=== PATIENT | female | born 1955 | race Caucasian/White ===

== ENCOUNTER 2016-11-09 17:32 | Observation (INO) ==
--- NOTE | 2016-11-09 19:14 | Emergency Department Note ---
Disposition Clinical Impression: Obesity, Wheezing, Cardiomegaly, Acute bronchitis, Bronchitis with bronchospasm Disposition: Admitted As Inpatient Referrals: Agus Jacobs DO [Primary Care Provider] - Forms: ED Satisfaction Letter General Adult HPI - General Chief complaint: ED Shortness of Breath/Dyspnea Stated complaint: Rule out blood clots Time Seen by Provider: 11/09/16 19:14 Source: patient Limitations: no limitations - History of Present Illness HPI Narrative: 61-year-old female reports emergency department complaining of a cough runny nose and wheezing. The patient was seen at urgent care and given 2 breathing treatments and Solu-Medrol. She reports that she was at occupational medicine being evaluated for a finger fracture as well. She states she was diagnosed with a left fifth digit fracture. The patient has had a cough and upper respiratory symptoms for the last several days. 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 The patient denies any chest pain, she has had a cough and shortness of breath, the patient has no history of coronary disease or CHF. No previous history of DVT PE or cancer. There is no history of leg swelling or pain or coughing up blood. She reports remotely when she had knee surgery bilaterally she had to be anticoagulated briefly. The patient denies any abdominal pain vomiting or diarrhea. She states she may have had a fever a few days ago. No difficulty swallowing. There is no history of syncope or any difficulty walking talking hearing seeing or speaking. No unilateral arm weakness or numbness, confusion falls or seizures. Persistent shortness of breath status post 2 breathing treatments and Solu-Medrol are reported. The patient was sent to the ED from occupational medicine for further evaluation regarding bronchitis and bronchospasm. Onset (ago): day(s) Pain Scale: 0 - Related Data Home Medications Medication Instructions Recorded Confirmed Atenolol [Tenormin] 50 mg PO DAILY 11/09/16 11/09/16 Azithromycin [Zithromax] 250 mg PO PER PKG DI 11/09/16 11/09/16 Duloxetine [Cymbalta] 30 mg PO BID 11/09/16 11/09/16 Fosinopril Sodium 40 mg PO DAILY 11/09/16 11/09/16 Levothyroxine [Synthroid] 175 mcg PO DAILY 11/09/16 11/09/16 Pioglitazone [Actos] 30 mg PO DAILY 11/09/16 11/09/16 PredniSONE [Deltasone] 20 mg PO TAPER 11/09/16 11/09/16 TraZODone 50 mg PO HS PRN 11/09/16 11/09/16 Triamterene/HCTZ 37.5/25mg 1 each PO DAILY 11/09/16 11/09/16 [Dyazide] Previous Rx's Medication Instructions Recorded Albuterol Sulfate [Albuterol 1 puff IH QID PRN #1 puff 11/09/16 Inhaler] Allergies Allergy/AdvReac Type Severity Reaction Status Date / Time baclofen AdvReac Hallucinati Verified 11/09/16 17:41 ng All systems ED: reviewed and negative except as stated. Past Medical History - Past Medical History Medical history: Reports: diabetes, hypertension, thyroid disease Psychiatric history: Reports: no psych history - Social History Smoking Status: Never smoker Smokeless Tobacco Status: No Alcohol use: Reports: none Physical Exam - General Limitations: no limitations General appearance: alert, in no apparent distress - Head Head exam: atraumatic, normocephalic, normal inspection - Eye Eye exam: Present: normal appearance, PERRL, EOMI. Absent: scleral icterus, conjunctival injection - ENT ENT exam: normal exam, normal oropharynx, mucous membranes moist, TM's normal bilaterally, normal external ear exam - Neck Neck exam: Present: normal inspection, full ROM, trachea midline - Chest Chest inspection: Present: symmetric chest wall rise. Absent: tenderness - Respiratory Respiratory exam: Present: wheezes, prolonged expiratory phase. Absent: normal lung sounds bilaterally, respiratory distress - Cardiovascular Cardiovascular exam: Present: regular rate, normal rhythm, normal heart sounds - Abdominal Exam Abdominal exam: Present: soft, Non-Tender. Absent: tenderness, distention, guarding, rebound, rigidity, pulsatile mass - Extremities Exam Extremities exam: Present: normal inspection, full ROM, normal capillary refill , other (All 4 extremities painless, supple, warm and well perfused without evidence of neurovascular or neuromuscular compromise.). Absent: tenderness, pedal edema, joint swelling, calf tenderness - Expanded Lower Extremity Exam Hip/Pelvis exam: Present: full ROM. Absent: tenderness Upper leg exam: Present: full ROM. Absent: tenderness Knee exam: Present: full ROM. Absent: tenderness Lower leg exam: Present: full ROM. Absent: tenderness, Homans' sign Ankle exam: Present: full ROM. Absent: tenderness Neurovascular/Tendon exam: Absent: motor deficit, sensory deficit, tendon deficit, extremity cold to touch, pallor - Back Exam Back exam: Present: normal inspection, full ROM. Absent: tenderness, CVA tenderness (R), CVA tenderness (L), vertebral tenderness - Neurological Exam Neurological exam: Present: alert, oriented X3, CN II-XII intact. Absent: motor sensory deficit - Psychiatric Psychiatric exam: Present: normal affect, normal mood - Skin Skin exam: Present: warm, dry, intact, normal color. Absent: rash, cyanosis, diaphoresis, erythema, pallor, mottled Course Vital Signs Temperature 97.8 F 11/09/16 17:39 Pulse Rate 78 11/09/16 17:39 Respiratory Rate 16 11/09/16 17:39 Blood Pressure 190/89 11/09/16 17:39 O2 Sat by Pulse Oximetry 97 11/09/16 17:39 Temperature 97.8 F 11/09/16 17:39 Pulse Rate 74 11/09/16 20:28 Respiratory Rate 18 11/09/16 20:52 Blood Pressure 149/85 11/09/16 20:52 O2 Sat by Pulse Oximetry 99 11/09/16 20:52 Oxygen Delivery Oxygen Delivery Room Air Medical Decision Making - MDM Narrative Medical decision making narrative: The patient's chest x-ray showed no acute disease however cardiomegaly as described. Laboratory testing is unrevealing apart from elevated lactate which is most likely secondary to albuterol. The patient has received 4 nebulizers today, and her best peak flow is 150 and she still has notable wheezing. The patient appears to have failed outpatient therapy. She has no known lung disease i.e. asthma or COPD. Based on her apparent persistent bronchospasm, I think the patient will require admission to the hospital for further evaluation and treatment. The patient is currently stable. I have discussed the case with the hospitalist on-call. He has accepted the patient and requested an ABG. The patient's flu testing is negative. She states she had an injection of Solu-Medrol at urgent care. - Lab Data Lab results reviewed: Yes I reviewed the patient's lab results. Result diagrams: 11/09/16 19:52 11/09/16 19:52 Lab Results 11/09/16 11/09/1617 Range/Units 19:52 19:52 19:52 WBC 7.4 (4.3-11.1) K/mcL RBC 4.45 (3.82-4.97) M/mcL Hgb 12.3 (11.5-15.4) g/dL Hct 40.1 (35.3-44.9) % MCV 90.1 (83.0-100.0) fL MCH 27.6 L (28.0-33.3) pg MCHC 30.7 L (31.6-35.5) g/dL RDW 14.9 H (11.5-14.5) % Plt Count 212 (140-400) K/mcL MPV 12.2 (9.4-12.4) fL Immature Gran % 1.2 (0-4) % Seg Neutrophils % 83.2 % Lymphocytes % 12.7 % Monocytes % 1.9 % Eosinophils % 0.5 % Basophils % 0.5 % Neutrophils # 6.2 (1.6-8.9) K/mcL Lymphocytes # 0.9 (0.6-4.6) K/mcL Monocytes # 0.1 (0.0-1.3) K/mcL Eosinophils # 0.0 (0.0-0.6) K/mcL Basophils # 0.0 (0.0-0.2) K/mcL PT 12.6 H (9.4-12.1) Seconds INR 1.2 APTT 30.0 (26.0-36.0) Seconds D-Dimer 455 (0-500) ng/mLFEU Sodium 137 (136-145) mEq/L Potassium 4.2 (3.5-4.5) mEq/L Chloride 100 (98-109) mEq/L Carbon Dioxide 24 (19-29) mEq/L BUN 16 (7-20) mg/dL Creatinine 1.06 (0.57-1.11) mg/dL Est GFR ( Amer) > 60 (> 60) Est GFR (Non-Af Amer) 53 L (> 60) BUN/Creatinine Ratio 15 (6-26) Glucose 255 H (70-99) mg/dL Calculated Osmolality 294 (280-300) Lactic Acid (0.5-2.2) mmol/L Calcium 9.3 (8.6-10.8) mg/dL Total Bilirubin 0.4 (0.2-1.2) mg/dL Direct Bilirubin 0.2 (0.0-0.5) mg/dL Indirect Bilirubin 0.2 (0.0-1.2) mg/dL AST 16 (5-34) Units/L ALT 15 (0-55) Units/L Alkaline Phosphatase 100 (38-126) Units/L Troponin I (0-0.03) ng/mL C-Reactive Protein (Less than 5) mg/L B-Natriuretic Peptide (0-100) pg/mL Serum Total Protein 7.4 (6.0-8.3) g/dL Albumin 3.6 (3.5-5.0) g/dL Globulin 3.8 H (2.4-3.5) g/dL Albumin/Globulin Ratio 0.9 L (1.1-2.2) 11/09/16 11/09/16 11/09/16 Range/Units 19:52 19:52 19:52 WBC (4.3-11.1) K/mcL RBC (3.82-4.97) M/mcL Hgb (11.5-15.4) g/dL Hct (35.3-44.9) % MCV (83.0-100.0) fL MCH (28.0-33.3) pg MCHC (31.6-35.5) g/dL RDW (11.5-14.5) % Plt Count (140-400) K/mcL MPV (9.4-12.4) fL Immature Gran % (0-4) % Seg Neutrophils % % Lymphocytes % % Monocytes % % Eosinophils % % Basophils % % Neutrophils # (1.6-8.9) K/mcL Lymphocytes # (0.6-4.6) K/mcL Monocytes # (0.0-1.3) K/mcL Eosinophils # (0.0-0.6) K/mcL Basophils # (0.0-0.2) K/mcL PT (9.4-12.1) Seconds INR APTT (26.0-36.0) Seconds D-Dimer (0-500) ng/mLFEU Sodium (136-145) mEq/L Potassium (3.5-4.5) mEq/L Chloride (98-109) mEq/L Carbon Dioxide (19-29) mEq/L BUN (7-20) mg/dL Creatinine (0.57-1.11) mg/dL Est GFR ( Amer) (> 60) Est GFR (Non-Af Amer) (> 60) BUN/Creatinine Ratio (6-26) Glucose (70-99) mg/dL Calculated Osmolality (280-300) Lactic Acid 3.1 H (0.5-2.2) mmol/L Calcium (8.6-10.8) mg/dL Total Bilirubin (0.2-1.2) mg/dL Direct Bilirubin (0.0-0.5) mg/dL Indirect Bilirubin (0.0-1.2) mg/dL AST (5-34) Units/L ALT (0-55) Units/L Alkaline Phosphatase (38-126) Units/L Troponin I 0.00 (0-0.03) ng/mL C-Reactive Protein (Less than 5) mg/L B-Natriuretic Peptide 147 H (0-100) pg/mL Serum Total Protein (6.0-8.3) g/dL Albumin (3.5-5.0) g/dL Globulin (2.4-3.5) g/dL Albumin/Globulin Ratio (1.1-2.2) 11/09/16 Range/Units 19:52 WBC (4.3-11.1) K/mcL RBC (3.82-4.97) M/mcL Hgb (11.5-15.4) g/dL Hct (35.3-44.9) % MCV (83.0-100.0) fL MCH (28.0-33.3) pg MCHC (31.6-35.5) g/dL RDW (11.5-14.5) % Plt Count (140-400) K/mcL MPV (9.4-12.4) fL Immature Gran % (0-4) % Seg Neutrophils % % Lymphocytes % % Monocytes % % Eosinophils % % Basophils % % Neutrophils # (1.6-8.9) K/mcL Lymphocytes # (0.6-4.6) K/mcL Monocytes # (0.0-1.3) K/mcL Eosinophils # (0.0-0.6) K/mcL Basophils # (0.0-0.2) K/mcL PT (9.4-12.1) Seconds INR APTT (26.0-36.0) Seconds D-Dimer (0-500) ng/mLFEU Sodium (136-145) mEq/L Potassium (3.5-4.5) mEq/L Chloride (98-109) mEq/L Carbon Dioxide (19-29) mEq/L BUN (7-20) mg/dL Creatinine (0.57-1.11) mg/dL Est GFR ( Amer) (> 60) Est GFR (Non-Af Amer) (> 60) BUN/Creatinine Ratio (6-26) Glucose (70-99) mg/dL Calculated Osmolality (280-300) Lactic Acid (0.5-2.2) mmol/L Calcium (8.6-10.8) mg/dL Total Bilirubin (0.2-1.2) mg/dL Direct Bilirubin (0.0-0.5) mg/dL Indirect Bilirubin (0.0-1.2) mg/dL AST (5-34) Units/L ALT (0-55) Units/L Alkaline Phosphatase (38-126) Units/L Troponin I (0-0.03) ng/mL C-Reactive Protein 28 H (Less than 5) mg/L B-Natriuretic Peptide (0-100) pg/mL Serum Total Protein (6.0-8.3) g/dL Albumin (3.5-5.0) g/dL Globulin (2.4-3.5) g/dL Albumin/Globulin Ratio (1.1-2.2) - Radiology Data Radiology results reviewed: Yes I reviewed the patient's radiology results.
[2016-11-09] MEDS ORDERED: Ipratropium/Albuterol Neb 3 ML IH ONE ×2 (19:34→20:34)
[2016-11-09 20:02] LABS: Basophils % 0.5 %; Eosinophils % 0.5 %; Hematocrit 40.1 % (35.3-44.9); Hemoglobin 12.3 g/dL (11.5-15.4); Immature Granulocytes % 1.2 % (0-4); Lymphocytes # 0.9 K/mcL (0.6-4.6); Lymphocytes % 12.7 %; Mean Corpuscular HGB Conc 30.7 g/dL (31.6-35.5); Mean Corpuscular Hemoglobin 27.6 pg (28.0-33.3); Mean Corpuscular Volume 90.1 fL (83.0-100.0); Mean Platelet Volume 12.2 fL (9.4-12.4); Monocytes # 0.1 K/mcL (0.0-1.3); Monocytes % 1.9 %; Neutrophils # 6.2 K/mcL (1.6-8.9); Platelet Count 212 K/mcL (140-400); Red Blood Count 4.45 M/mcL (3.82-4.97); Red Cell Distribution Width 14.9 % (11.5-14.5); Segmented Neutrophils % 83.2 %
[2016-11-09 20:07] LABS: INR 1.2; Prothrombin Time 12.6 Seconds (9.4-12.1)
[2016-11-09 20:19] LABS: Alanine Aminotransferase 15 Units/L (0-55); Albumin 3.6 g/dL (3.5-5.0); Albumin/Globulin Ratio 0.9 (1.1-2.2); Alkaline Phosphatase 100 Units/L (38-126); Aspartate Amino Transferase 16 Units/L (5-34); BUN/Creatinine Ratio 15 (6-26); Bilirubin,Direct 0.2 mg/dL (0.0-0.5); Bilirubin,Indirect 0.2 mg/dL (0.0-1.2); Bilirubin,Total 0.4 mg/dL (0.2-1.2); Blood Urea Nitrogen 16 mg/dL (7-20); Calcium 9.3 mg/dL (8.6-10.8); Carbon Dioxide 24 mEq/L (19-29); Chloride 100 mEq/L (98-109); Globulin 3.8 g/dL (2.4-3.5); Glucose 255 mg/dL (70-99); Osmolality,Calculated 294 (280-300); Potassium 4.2 mEq/L (3.5-4.5); Sodium 137 mEq/L (136-145); Total Protein 7.4 g/dL (6.0-8.3); eGFR For African Americans > 60 (> 60); eGFR For Non-African Americans 53 (> 60)
[2016-11-09] MEDS ORDERED: 0.9 % Sodium Chloride 1,000 ML IVC ONE (20:30)
[2016-11-09 23:18] LABS: ABG HCO3 27.9 mEQ/L (21-27); ABG Oxygen Saturation 91 % (95-98); ABG PCO2 43 mmHg (35-45); ABG PH 7.42 pH Units (7.32-7.45); ABG PO2 60 mmHg (85-104); ABG TCO2 29.2 mEq/L (20-26)
[2016-11-09 23:19] LABS: Blood Gas FiO2 21 %
[2016-11-10] MEDS ORDERED: traZODone 50 MG TABLET PO PRN (00:40)
[2016-11-10] MEDS ORDERED: Acetaminophen 325 MG TABLET PO PRN (00:53)
[2016-11-10] MEDS ORDERED: Ondansetron 4 MG/2 ML VIAL IVP PRN (00:53)
[2016-11-10] MEDS ORDERED: Naloxone 0.4 MG/ML INJ IVP PRN (00:53)
[2016-11-10] MEDS ORDERED: Dextrose Gel 15 GM PO PRN ×2 (00:58)
[2016-11-10] MEDS ORDERED: *HR* Dextrose 50 % in Water (Syg) 50 ML SYRINGE IVP PRN (00:58)
[2016-11-10] MEDS ORDERED: D5% in Water 1,000 ML IV PRN (00:58)
--- NOTE | 2016-11-10 01:15 | Internal Med History&Physical ---
<Miguelangel Licea - Last Filed: 11/10/16 01:03> Date of Encounter: 11/10/16 Time of Encounter: 00:30 Assessment and Plan (1) Acute bronchitis Current visit: Yes Status: Acute Patient has significant audible wheezing with respiration and was in mild respiratory distress upon initial encounter. She denies history of asthma or reactive airway disease. Influenza swab negative. She recently got a cat, and states that she has been sleeping in the bed with the cat-consider possible allergies. Normal white count and temperature, cough with yellow sputum production. Levaquin. Zofran for nausea control. DuoNeb scheduled Q4HR methylprednisolone 40mg Q8HR oxygen NC Qualifiers: Bronchitis organism: unspecified organism Qualified Code(s): J20.9 - Acute bronchitis, unspecified (2) Wheezing Current visit: Yes Status: Acute plan as above. (3) Cardiomegaly Current visit: Yes Status: Acute CX showed evidence of cardiomegaly Patient had evidence of RLE pitting edema that was more prominent than left EV echo pending. (4) Diabetes Current visit: Yes Status: Acute Medium dose sliding scale. ACHS accuchecks. ADA diet. Qualifiers: Diabetes mellitus type: type 2 Diabetes mellitus complication status: with unspecified complications Diabetes mellitus care home insulin use: unspecified care home insulin use status Qualified Code(s): E11.8 - Type 2 diabetes mellitus with unspecified complications (5) Obesity Current visit: Yes Status: Acute Qualifiers: Obesity type: unspecified obesity type Obesity severity: morbid Qualified Code(s): E66.01 - Morbid (severe) obesity due to excess calories (6) HTN (hypertension) Current visit: Yes Status: Acute continue home meds lisinopril and triamterine/HCTZ Qualifiers: Hypertension type: essential hypertension Qualified Code(s): I10 - Essential (primary) hypertension (7) Hypothyroidism Current visit: Yes Status: Acute Continue home med synthroid. Qualifiers: Hypothyroidism type: unspecified Qualified Code(s): E03.9 - Hypothyroidism , unspecified (8) Anxiety Current visit: Yes Status: Acute continue Cymbalta, trazodone (9) DVT prophylaxis Current visit: Yes Status: Acute Heparin SQ prilosec for GI prophylaxis. Internal Medicine - H&P: HPI Chief complaint: bronchitis Admitted From: Emergency Dept Plans for Post Hospital Care: Home History of present illness: PCP: Agus Jacobs Ms. Titus is a 61 year old female with PMHx of morbid obesity, DM, hypothyroidism, anxiety. Patient states she started feeling sick on Monday. She had a lot of sinus pain/pressure and says her ears feel sore. She had a productive cough with yellow sputum production, was sneezing. She denies hemoptysis, dizziness, nausea, vomiting. She felt febrile and admits to having chills. She has no recent travel history. She did not receive the flu shot because she always gets "sick" afterwards. She denies chest pain, and admits to a right lower rib pain in her back with coughing. She went to [facility] today, where they did a chest xray and gave her two breathing treatments. Urgent care sent her to the ED, where she received two more breathing treatments. Patient states that she has no history of asthma or reactive airway disease. She recently bought her daughter a cat during , and has been sleeping in the bed with the cat for the past few days. Social Hx: lives at home with and daughter. Denies smoking, alcohol, illicit drug use. Surgical Hx: bilateral knee replacement two years ago. Family Hx: mom is still living and has HTN, thyroid disease, diverticulosis. Dad is still living and has no medical problems. Daughter has thyroid disease. Past Med Surg Social Fam HX - Past Medical History Medical history: diabetes, hypertension, thyroid disease Psychiatric history: anxiety - Past Surgical History Surgical History: knee replacement - Social History Smoking Status: Never smoker Smokeless Tobacco Status: No Alcohol use: none Drug use: none - Family History Mother Living Status: Still Living Hx Family Cardiac Disorders: Yes (htn) Hx Family GI Disorders: Yes (diverticulosis) Hx Family Endocrine Disorder: Yes (hypothyroid) Father Age: 83 Living Status: Still Living Daughter Living Status: Still Living Hx Family Endocrine Disorder: Yes (hypothyroid) Internal Medicine - H&P: Meds Albuterol Sulfate [Albuterol Inhaler] 1 puff IH QID PRN #1 puff 11/09/16 [Rx] Atenolol [Tenormin] 50 mg PO DAILY 11/09/16 [History] Azithromycin [Zithromax] 250 mg PO PER PKG DI 11/09/16 [History] Duloxetine [Cymbalta] 30 mg PO BID 11/09/16 [History] Fosinopril Sodium 40 mg PO DAILY 11/09/16 [History] Levothyroxine [Synthroid] 175 mcg PO DAILY 11/09/16 [History] Pioglitazone [Actos] 30 mg PO DAILY 11/09/16 [History] PredniSONE [Deltasone] 20 mg PO TAPER 11/09/16 [History] TraZODone 50 mg PO HS PRN 11/09/16 [History] Triamterene/HCTZ 37.5/25mg [Dyazide] 1 each PO DAILY 11/09/16 [History] Allergies baclofen Adverse Reaction (Verified 11/09/16 17:41) Hallucinating All Systems PM: A 10-system review of systems was performed and is negative for pertinent findings except as documented above in the HPI. - Constitutional Constitutional: chills, fever(s), lethargy - EENT Eyes: no blurry vision Ears: other (ears felt sore when she started getting sick. ) Nose, mouth and throat: sinus pain, sinus pressure - Cardiovascular Cardiovascular ROS IM: no chest pain - Respiratory Respiratory: cough, pain with cough, no hemoptysis - Gastrointestinal Gastrointestinal: no abdominal pain, no diarrhea, no vomiting - Neurological Neurological ROS: headache(s), no confusion, no dizziness, no frequent falls - Constitutional Vitals: Temp Pulse Resp BP Pulse Ox 97.9 F 89 18 138/75 98 11/09/16 23:54 11/09/16 23:54 11/09/16 23:54 11/09/16 23:54 11/10/16 00:05 General appearance: Present: mild distress, A&O X 3, pleasant, answers questions appropriately - Head Head exam: Present: atraumatic, normocephalic Additional comments: frontal sinuses tender to palpation. - Eye Eye exam: Absent: scleral icterus - ENT ENT exam: Present: mucous membranes moist - Neck Neck exam general surgery: Present: supple, trachea midline - Respiratory Respiratory exam: Present: respiratory distress (mild respiratory distress), rhonchi, wheezes Additional comments: audible respiratory wheezing - Cardiovascular Cardiovascular exam: Present: RRR - GI/Abdominal GI/Abdominal exam: Present: normal bowel sounds, soft. Absent: guarding, tenderness - Extremities Exam Extremities exam: Present: pedal edema (RLE edema: +2, left LE edema:+1), radial pulses palpable and symetrical. Absent: cyanotic Additional comments: pedal pulses palpable and symmetrical. - Neurological Exam Neurological exam: Present: alert, oriented X3, strengths equal and symetr throughout - Psychiatric Psychiatric exam: Present: normal mood Internal Med - H&P Results - Labs CBC & Chem 7: 11/09/16 19:52 11/09/16 19:52 - ABG Interpretation ABG results: 11/09/16 23:10 ABG pH 7.42 ABG pCO2 43 ABG pO2 60 L ABG HCO3 27.9 H ABG Total CO2 29.2 H ABG O2 Saturation 91 L ABG Base Excess 3.0 <Thiago Cannon - Last Filed: 11/10/16 06:13> Date of Encounter: 11/10/16 Internal Medicine - H&P: HPI History of present illness: Ms. Titus is a 61 year old female All Systems PM: A 10-system review of systems was performed and is negative for pertinent findings except as documented above in the HPI. - Constitutional Vitals: Temp Pulse Resp BP Pulse Ox 98.1 F 73 20 127/65 96 11/10/16 03:23 11/10/16 03:23 11/10/16 04:17 11/10/16 03:23 11/10/16 04:17 Internal Med - H&P Results - Labs CBC & Chem 7: 11/10/16 03:38 11/10/16 03:38 Labs: Short CBC 11/10/16 Range/Units 03:38 WBC 6.3 (4.3-11.1) K/mcL Hgb 11.2 L (11.5-15.4) g/dL Hct 36.1 (35.3-44.9) % Plt Count 214 (140-400) K/mcL Neutrophils # 5.2 (1.6-8.9) K/mcL BMP 11/10/16 03:38 Sodium 137 Potassium 4.2 Chloride 101 Carbon Dioxide 25 BUN 15 Creatinine 0.92 Glucose 261 H Calcium 9.0 - ABG Interpretation ABG results: 11/09/16 23:10 ABG pH 7.42 ABG pCO2 43 ABG pO2 60 L ABG HCO3 27.9 H ABG Total CO2 29.2 H ABG O2 Saturation 91 L ABG Base Excess 3.0 - Attending Attestation I examined this patient and my medical decision-making was reviewed with the RUG SHAMPOOER/PA/Advanced Practice Nurse/Resident Physician. I agree with the documented findings, disposition and treatment plan as described except to the extent set forth below. I have personally examined and evaluated the patient and discussed details with the Manager Vehicle / Resident. 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 She denies prior h/o Asthma / COPD/ smoking. She has new kitten at home since [place] time. Kitten slept with her on the night before presentation. In the urgent care and in ER, she was noted to have significant wheeze and shortness of breath was given solumedrol, bronchodilator nebs. She continues to be wheezy. ABGs show hypoxemia on supplemental oxygen. Suspect acute bronchitis versus reactive airway disease. Influenza screen is negative. Continue steroids, bronchodilators, add levofloxacin and mucinex. May need F/U with apprentice embalmer as out pt, for PFTs and w/u. CXR shows cardiomegaly will obtain echo. Right lower extremity swelling, with negative D-dimers, obtain venous Doppler.
[2016-11-10] MEDS: Ipratropium/Albuterol Neb 3 ML IH SCH ×6 (02:18→18:51)
[2016-11-10] MEDS: MethylPREDNISolone 40 MG/ML VIAL IVP SCH ×3 (03:45→16:45)
[2016-11-10] MEDS: *HR* Heparin 5,000 UNIT/ML VIAL SQ SCH ×2 (03:45→16:46)
[2016-11-10] MEDS: Levofloxacin 750 MG/150 ML 750 MG/150 ML BAG IVPB SCH (03:45)
[2016-11-10 03:56] LABS: Basophils % 0.2 %; Hematocrit 36.1 % (35.3-44.9); Hemoglobin 11.2 g/dL (11.5-15.4); Immature Granulocytes % 0.6 % (0-4); Lymphocytes # 0.9 K/mcL (0.6-4.6); Mean Corpuscular Hemoglobin 27.7 pg (28.0-33.3); Mean Corpuscular Volume 89.4 fL (83.0-100.0); Mean Platelet Volume 12.2 fL (9.4-12.4); Monocytes # 0.1 K/mcL (0.0-1.3); Neutrophils # 5.2 K/mcL (1.6-8.9); Platelet Count 214 K/mcL (140-400); Red Blood Count 4.04 M/mcL (3.82-4.97); Red Cell Distribution Width 14.6 % (11.5-14.5); Segmented Neutrophils % 83.2 %
[2016-11-10] MEDS ORDERED: Ipratropium/Albuterol Neb 3 ML IH SCH (04:00)
[2016-11-10 04:14] LABS: BUN/Creatinine Ratio 16 (6-26); Blood Urea Nitrogen 15 mg/dL (7-20); Carbon Dioxide 25 mEq/L (19-29); Chloride 101 mEq/L (98-109); Glucose 261 mg/dL (70-99); Osmolality,Calculated 294 (280-300); Potassium 4.2 mEq/L (3.5-4.5); Sodium 137 mEq/L (136-145); eGFR For African Americans > 60 (> 60); eGFR For Non-African Americans > 60 (> 60)
[2016-11-10] MEDS ORDERED: *HR* Heparin 5,000 UNIT/ML VIAL SQ SCH (07:00)
[2016-11-10] MEDS: Insulin LISPRO 300 UNITS/3 ML VIAL SQ SCH ×3 (08:08→17:55)
[2016-11-10] MEDS: Lisinopril 20 MG TABLET PO SCH (08:09)
--- NOTE | 2016-11-10 16:38 | Electrocardiograph Report ---
[place] [id number] Test Date: 2016-11-09 Pat Name: Henny Titus Department: 103 Room: [facility] Gender: F [facility] Social Worker: : 1955 Requested By: Cipriano Peck Order Number: [id number] Reading MD: Ever Hanley Measurements Intervals [place] Rate: 69 P: 58 [place]: 163 QRS: 2 QRSD: 88 T: 46 QT: 381 QTc: 400 Interpretive Statements SINUS RHYTHM LOW QRS VOLTAGE IN PRECORDIAL LEADS Electronically Signed On 11-10-2016 16:36:12 EST by Ever Hanley
--- NOTE | 2016-11-10 16:39 | Event Note ---
Date of Encounter: 11/10/16 Time of Encounter: 10:30 61 Y/O F , Morbid Obesity, HTN, DM, Hypothyroid She is being managed for acute bronchitis and reactive airway disease, suspected adult onset asthma exacerbation. Work up also revealed LVH and she had also complained of R LE swelling She has no new complains Physical Exam: VSS, no acute distress HEENT: MORGAN, MOist oral mucosa Chest: Diffuse expiratory wheezing bilaterally, audible . No stridor, no rales. , no rhonchi. Heart: S1,S@ only, no m/g/r Abdomen: Soft, obese, not tender, no palpably enlarged organs Extremities: No edema Labs and Imaging reviewed; CBC/Chem/LFT/D-dimer WNL. Flu negative. CXR with no acute pulmonary process Plan is to continue current management, change solumedrol to po prednisone from tomorrow a.m follow ECHHO and Doppler. Check Total IgE and Cat dander IgE with a.m labs, patient will benefit from out-patient PFTs Chronic conditions are stable, resume home meds
--- NOTE | 2016-11-10 20:18 | Venous Imaging Report ---
LE Venous Duplex Patient Name:Henny Titus Order Number:[id number] Procedure Date:11/10/2016 Date:1955ge:61 yrs Gender:Female Location:[facility] Room #: [id number] Drafter Electronic:Miesha Flynn Referring MD:Miguelangel Licea DO payable processor:Agus Jacobs DO Reading MD:Bryson Haynes MD , FACS Primary Indications:r/o DVT Secondary Indications: Impressions: Right lower extremity: normal superficial and deep exam. Left lower extremity: normal contralateral exam. Recommendations: After imaging the patient returned to their room. Findings Venous Duplex Results: Right: Venous imaging of the lower extremity reveals full patency and normal vessel compressibility of the right distal iliac, right common femoral, right superficial femoral, right popliteal, right posterior tibial, right peroneal, right great saphenous and right lesser saphenous. Doppler signals in the evaluated veins were normal. Left: Venous imaging of the lower extremity reveals full patency and normal vessel compressibility of the left common femoral. Doppler signals in the evaluated veins were normal. Prior Study: No prior study available for comparison. Lower Extremity Venous Duplex Side Vein Compress Spontaneous Flow Augment Diameter (cm) Depth (cm) Right Distal Iliac Normal Yes Phasic Yes Right Common Femoral Normal Yes Phasic Yes Right Superficial Femoral Normal Yes Phasic Yes Right Popliteal Normal Yes Phasic Yes Right Posterior Tibial Normal Yes Phasic Yes Right Peroneal Normal Yes Phasic Yes Right Great Saphenous Normal Yes Phasic Yes Right Lesser Saphenous Normal Yes Phasic Yes Left Common Femoral Normal Yes Phasic Yes Updated by Bryson Haynes MD, FACS on 11/10/2016 8:11:44 PM Bryson Haynes MD electronically signed on 11/10/2016 8:12:14 PM with status of Final
[2016-11-10] MEDS ORDERED: Insulin LISPRO 300 UNITS/3 ML VIAL SQ SCH (21:00)
[2016-11-11] MEDS: MethylPREDNISolone 40 MG/ML VIAL IVP SCH (00:26)
[2016-11-11] MEDS: *HR* Heparin 5,000 UNIT/ML VIAL SQ SCH ×2 (00:26→06:12)
[2016-11-11] MEDS: Ipratropium/Albuterol Neb 3 ML IH SCH ×4 (00:36→10:47)
[2016-11-11] MEDS: Levofloxacin 750 MG/150 ML 750 MG/150 ML BAG IVPB SCH (01:34)
[2016-11-11] MEDS: Insulin LISPRO 300 UNITS/3 ML VIAL SQ SCH ×2 (08:23→12:04)
[2016-11-11] MEDS: Lisinopril 20 MG TABLET PO SCH (08:25)
--- NOTE | 2016-11-11 08:46 | ECHO - Doppler Report ---
Echocardiogram Name: Henny Titus Date of Study: 11/10/2016 Date: 1955 Ht: 65.0 in Medical Record#: [id number] Age: 61 Wt: 331.0 lb Gender: Female BSA: 2.45 Order #: [id number] Location: [facility] Room #: [id number] Reading Physician: Zia Abreu DO, NIKKI KOTHARI FASNC Facilities Specialist: Miesha Flynn Ordering Physician: Gladys Cannon MD Primary Physician: Agus Jacobs DO Indications: Cardiomegaly Impressions: Technically sub-optimal due to body habitus. LVEF 65%. Normal LV chamber size, wall thickness and function. Mild left ventricular diastolic dysfunction. Grossly normal right ventricular structure and function. Mildly dilated left atrium. Moderate pulmonary hypertension. Estimated RVSP is 51 mmHg. No significant valvular dysfunction. Left Ventricular Wall Motion: Rest Echo Findings All wall segments showed normal motion. Findings: Study Quality * Technically sub-optimal due to body habitus. ECG Findings * Normal sinus rhythm. Left Ventricle * LVEF 65%. * Normal LV chamber size, wall thickness and function. * Mild left ventricular diastolic dysfunction. Right Ventricle * Grossly normal right ventricular structure and function. Left Atrium * Mildly dilated left atrium. Right Atrium * Normal right atrial size. Interatrial Septum * Interatrial septum not well evaluated. Aortic Valve * Trileaflet aortic valve with normal function. * No aortic regurgitation. * No aortic stenosis. Mitral Valve * Normal mitral valve structure and function. * No mitral regurgitation. * No mitral stenosis. Tricuspid Valve * Normal tricuspid valve structure and function. * Trace tricuspid regurgitation. * Moderate pulmonary hypertension. * Estimated RVSP is 51 mmHg. * Estimated RA pressure is presumed to be at least 5 mmHg. Pulmonic Valve * Normal pulmonic valve structure and function. * No pulmonic regurgitation. Aorta * Normally sized aortic root. Pericardium * The pericardium appears normal. IVC * The IVC is not well evaluated. Pulmonary Artery * Normal visualized portions of the main pulmonary artery. History Hypertension Diabetes Family History of CAD Measurements: BP: 110/ 59 2D Normal Values RVIDd: 3.80 cm <2.7 cm IVSd: 1.00 cm 0.6 - 1.0 cm LVIDd: 4.90 cm 3.7 - 5.6 cm LVPWd: 1.00 cm 0.6 - 1.1 cm LVIDs: 3.10 cm 1.5 - 3.6 cm AO: 2.60 cm < 4.0 cm LA: 4.20 cm 2.0 - 4.0cm %FS: 36.70 cm >25 % LA volume: 54 Mitral Valve Peak E:1.17 m/sec Peak A:1.23 m/sec E/A Ratio:1 Peak E' Lat Lionel:9.75 cm/s Peak E' Med Lionel:7.02 cm/s E/E' Lat Ratio:12 E/E' Med Ratio:16.7 Tricuspid Valve TV Regurg Peak Grad: 47.00mmHg TV Regurg Peak Lionel: 3.41m/sec Updated by Zia Arbeu DO, FACAsha, NIKKI, OMAR on 11/11/2016 8:42:04 AM electronically signed on 11/11/2016 8:42:19 AM with status of Final Wall Motion Hernadez: 1=Normal, 2=Hypokinesis, 3=Akinesis, 4=Dyskinesis, 5=Aneurysmal, 6=Hyperkinetic, X=Not Visualized (Blank)=Missing
[2016-11-11] MEDS ORDERED: predniSONE 20 MG TABLET PO SCH (09:00)
[2016-11-11 11:36] VITALS: BP 153/74
--- NOTE | 2016-11-11 14:09 | Discharge Summary ---
Date of Encounter: 11/11/16 Time of Encounter: 10:00 - Discharge Diagnosis (1) Reactive airway disease Priority: Primary Status: Acute Qualifiers: Asthma severity: mild persistent Asthma complication type: with acute exacerbation Qualified Code(s): J45.31 - Mild persistent asthma with (acute) exacerbation (2) Acute bronchitis Priority: Primary Status: Acute Qualifiers: Bronchitis organism: unspecified organism Qualified Code(s): J20.9 - Acute bronchitis, unspecified (3) Pulmonary hypertension Priority: Secondary Status: Chronic (4) Anxiety Priority: Secondary Status: Chronic (5) Diabetes Priority: Secondary Status: Chronic Qualifiers: Diabetes mellitus type: type 2 Diabetes mellitus complication status: with unspecified complications Diabetes mellitus terminal worker insulin use: unspecified terminal worker insulin use status Qualified Code(s): E11.8 - Type 2 diabetes mellitus with unspecified complications (6) HTN (hypertension) Priority: Secondary Status: Chronic Qualifiers: Hypertension type: essential hypertension Qualified Code(s): I10 - Essential (primary) hypertension (7) Hypothyroidism Priority: Secondary Status: Chronic Qualifiers: Hypothyroidism type: unspecified Qualified Code(s): E03.9 - Hypothyroidism , unspecified (8) Obesity Priority: Secondary Status: Chronic Qualifiers: Obesity type: unspecified obesity type Obesity severity: morbid Qualified Code(s): E66.01 - Morbid (severe) obesity due to excess calories - Discharge Medications Prescriptions: Fluticasone/Salmeterol [Advair 250-50 Diskus] 1 puff IH BID #1 blst.w.dev Levofloxacin [Levaquin] 750 mg PO DAILY #5 tablet PredniSONE 40 mg PO DAILY #4 tablet Home Medications: Albuterol Sulfate [Albuterol Inhaler] 1 puff IH QID PRN #1 puff 11/09/16 [Rx] Atenolol [Tenormin] 50 mg PO DAILY 11/09/16 [History] Duloxetine [Cymbalta] 30 mg PO BID 11/09/16 [History] Fosinopril Sodium 40 mg PO DAILY 11/09/16 [History] Levothyroxine [Synthroid] 175 mcg PO DAILY 11/09/16 [History] Pioglitazone [Actos] 30 mg PO DAILY 11/09/16 [History] TraZODone 50 mg PO HS PRN 11/09/16 [History] Triamterene/HCTZ 37.5/25mg [Dyazide] 1 each PO DAILY 11/09/16 [History] Fluticasone/Salmeterol [Advair 250-50 Diskus] 1 puff IH BID #1 blst.w.dev [Rx] Levofloxacin [Levaquin] 750 mg PO DAILY #5 tablet 11/11/16 [Rx] PredniSONE 40 mg PO DAILY #4 tablet 11/11/16 [Rx] Allergies/Adverse Reactions: Allergies baclofen Adverse Reaction (Verified 11/09/16 17:41) Hallucinating Procedures/tests Complete & Pending: Procedures Performed prior 72 hours Category Date Time Status EV echocardiogram Routine Y 11/10/16 01:50 Completed Venous Doppler [EV venous imaging LE RT] Stat Y 11/10/16 01:00 Completed Date of admission: 11/09/16 22:46 Primary care physician: Agus Jacobs DO Discharging clinician: Mani Manning Anticipated date of discharge: 11/11/16 - Patient Status Disposition: Home, Self-Care Condition: Fair Functional capacity at discharge: independent ambulation Overall status at discharge: patient is progressing back to baseline - Discharge Instructions Follow Up With: Mani Manning MD [Partnered Physician] - (2-3 weeks) - Diet and Activity Activity: resume usual activities as tolerated Diet: diabetic diet, low fat, low cholesterol, low salt diet Interval History: 61 Y/O F who presented with sinus pain/pressure ears feel sore, productive cough with yellow sputum production and sneezing. She denies hemoptysis, dizziness, nausea, vomiting. She felt febrile and admits to having chills. She has no recent travel history. She did not receive the flu shot because she always gets "sick" afterwards. She denies chest pain, and admits to a right lower rib pain in her back with coughing. She went to [facility] where they did a chest xray and gave her two breathing treatments. Urgent care sent her to the ED, where she received two more breathing treatments. Patient states that she has no history of asthma or reactive airway disease. She recently bought her daughter a cat during mamadou, and has been sleeping in the bed with the cat for the past few days. She is a noo-smoker and has a PMH of morbid obesity, DM, HTN, Anxiety, hypothyroidism. Hospital course: She was admitted to observation and managed for acute bronchitis and reactive airway disease, suspected adult onset asthma exacerbation. CBC, Chem, LFT were all WNL. UA was unremarkable. Influenza was negative. Work up also revealed LVH and she had also complained of R LE swelling, however, D- dimer was negative, and Doppler USS of bilateral lower extremities ruled out DVT ECHO revealed LVEF 65%, Normal LV size and chamber, Mild LVDD, Moderate Pulm HTN with RVSP 51mmHg Patient is seen this morning, sitting up in bed, in no form of respiratory distress, able to speak full sentences She has remained afebrile , vitals are stable and wheezing and SOB has improved She will be discharged to complete po prednsione, levofloxacin at home Encouraged to continue alb MDI q4hr prn , Advair 1 puff bid She is educated about all her results including Pulm HTN and need for Pulmonary outpatient follow up Other chronic conditions remain stable, resume home meds She will follow up with PCP s - Time Spent with Patient Total time spent providing and/or coordinating discharge services: Less than 30 minutes - Constitutional Vitals: Temp Pulse Resp BP Pulse Ox 98.2 F 70 20 153/74 95 11/11/16 11:35 11/11/16 11:35 11/11/16 11:35 11/11/16 11:35 11/11/16 11:35 General appearance: Present: A&O X 3, morbidly obese, pleasant, no acute distress, answers questions appropriately - Head Head exam: Present: atraumatic, normocephalic - Eye Eye exam: Present: PERRL, conjuntiva pink, sclera anicteric Pupils: Present: PERRL - Neck Neck exam general surgery: Present: supple, trachea midline. Absent: lymphadenopathy - Respiratory Respiratory exam: Present: wheezes. Absent: accessory muscle use, rales, rhonchi - Cardiovascular Cardiovascular exam: Present: RRR, +S1, +S2. Absent: diastolic murmur, gallop, rubs, systolic murmur - GI/Abdominal GI/Abdominal exam: Present: normal bowel sounds, soft, no peritoneal signs. Absent: distended, tenderness - Extremities Exam Extremities exam: Present: warm, radial pulses palpable and symetrical. Absent : calf tenderness, cyanotic, pedal edema - Neurological Exam Neurological exam: Present: CN II-XII intact, oriented X3, no focal deficits. Absent: pronater drift, facial droop, speech deficit - Skin Skin exam: Present: dry, intact
[2016-11-14 08:31] LABS: Immunoglobulin E 36 kU/L (<=214)
[2016-11-14 08:32] LABS: Cat Dander IgE <0.10 kU/L (<=0.34)
== END 2016-11-11 16:15 | disposition home or self-care (01) ==
LOC: EMEROO 17:32 → 3BNU 17:32 → SUATTDRO 22:46 → 3BNU 23:17
PROVIDERS: ADMIT Nurse Practitioner Family; ATTEND Internal Medicine